=== PATIENT | female | born 1975 | race African-American/Black ===

== ENCOUNTER 2017-02-23 12:15 | Emergency (ER) | payer BC ==
[~2017-02-23 12:15] MED LIST: FLEXERIL PO; NAPROXEN PO; VICODIN 5/500 T1 TAB PO
== END 2017-02-23 12:55 | disposition home or self-care (01) ==
LOC: CED 12:15 → CFTX 12:15
DX: R59.0 Localized enlarged lymph nodes (principal); R03.0 Elevated blood-pressure reading, without diagnosis of hypertension
CPT/HCPCS: 99283